=== PATIENT | female | born 1950 | race Caucasian/White ===

== ENCOUNTER → 2024-01-01 13:02 | Outpatient (REF) | payer OTHER, SELFPAY | LOC: WDC 13:02 | PROVIDERS: ATTENDING PHYSICIAN Obstetrics & Gynecology | DX: Z12.31 Encounter for screening mammogram for malignant neoplasm of breast (principal) | CPT/HCPCS: 77063; 77067 ==

== ENCOUNTER → 2024-05-07 09:26 | Outpatient (REF) | payer OTHER, SELFPAY | LOC: WDC 09:26 | PROVIDERS: ATTENDING PHYSICIAN Nurse Practitioner Family | DX: N64.4 Mastodynia (principal) | CPT/HCPCS: 76642; 77061; 77065 ==

== ENCOUNTER → 2025-04-16 15:24 | Outpatient (REF) | payer OTHER, SELFPAY | LOC: WDC 15:24 | PROVIDERS: ATTENDING PHYSICIAN Nurse Practitioner Family; FAMILY PHYSICIAN Nurse Practitioner | DX: Z12.31 Encounter for screening mammogram for malignant neoplasm of breast (principal) | CPT/HCPCS: 77063; 77067 ==